=== PATIENT | female | born 1950 | race Caucasian/White ===

== ENCOUNTER → 2016-12-27 | Outpatient (REF) | payer MEDICARE | LOC: M LAB REF 16:52 | PROVIDERS: ATTEND Family Medicine | DX: Z01.89 Encounter for other specified special examinations (principal) ==

== ENCOUNTER → 2017-04-25 | Outpatient (CLI) | payer MEDICARE ==
--- NOTE | 2017-04-25 10:05 | REPMRS ---
Patient History The patient states she had a clinical breast exam in December 2016. Patient is postmenopausal, has history of cancer in the right breast at age 52, and had previous chemotherapy at age 52. Family history of breast cancer in mother at age 50 or over and breast cancer in paternal cousin at age 50 or over. Benign radio exam breast specimen of the left breast, June 30, 2012. Benign localization of breast nodule of the left breast, June 30, 2012. Benign stereotatic breast biopsy of the left breast, May 15, 2012. Malignant lumpectomy of the right breast, 2002. Chemotherapy, 2002. Radiation therapy of the right breast, 2002. Took hormonal contraceptives for 2 years. Took tamoxifen for 5 years. Took unspecified hormones for 2 years. Digital Mammo Screening Bilat: April 25, 2017 - Exam #: [id number] Bilateral CC and MLO view(s) were taken. Technologist: Terra Segura, Technologist Prior study comparison: April 23, 2016, bilateral digital mammo screening bilat performed at [facility]. April 22, 2015, bilateral digital mammo screening bilat performed at [facility]. FINDINGS: The breast tissue is extremely dense which could obscure a lesion on mammography. There is no evidence of cancer on this mammogram. No significant changes when compared with prior studies. ASSESSMENT: BI-RADS/ACR category 2 mammogram. Benign finding(s). Recommendation Routine screening mammogram of both breasts in 1 year (for women over age 40). This mammogram was interpreted with the aid of an FDA-approved computer-aided dectection system. Electronically Signed By: Naeem Alarcon MD 04/25/17 [id number]
== END ==
LOC: M RAD 08:40
PROVIDERS: ATTEND Internal Medicine Medical Oncology
DX: Z12.31 Encounter for screening mammogram for malignant neoplasm of breast (principal); R92.8 Other abnormal and inconclusive findings on diagnostic imaging of breast; Z85.3 Personal history of malignant neoplasm of breast; Z78.0 Asymptomatic menopausal state; Z92.0 Personal history of contraception

== ENCOUNTER 2017-07-25 08:42 | Day surgery (SDC) | payer MEDICARE ==
[2017-07-25] MEDS: NS 1,000 ML IV (10:04)
[2017-07-25] MEDS ORDERED: PROPOFOL 200 MG/20 ML VIAL As Ordered ×2 (10:32→10:40)
[2017-07-25] MEDS ORDERED: LIDOCAINE 2% INJ 100 MG/5 ML SDV (FOR ANES.) As Ordered (10:32)
== END 2017-07-25 11:25 | disposition home or self-care (01) ==
LOC: M OPP 08:42
DX: Z12.11 Encounter for screening for malignant neoplasm of colon (principal); Z86.010 Personal history of colon polyps; D12.5 Benign neoplasm of sigmoid colon; D12.4 Benign neoplasm of descending colon; D12.3 Benign neoplasm of transverse colon; D12.2 Benign neoplasm of ascending colon; R01.1 Cardiac murmur, unspecified; I10 Essential (primary) hypertension; Z85.3 Personal history of malignant neoplasm of breast; F41.9 Anxiety disorder, unspecified; M19.90 Unspecified osteoarthritis, unspecified site; Z78.0 Asymptomatic menopausal state; Z92.21 Personal history of antineoplastic chemotherapy; Z92.3 Personal history of irradiation; Z79.899 Other long term (current) drug therapy; Z80.3 Family history of malignant neoplasm of breast
CPT/HCPCS: 45385

== ENCOUNTER → 2018-04-29 | Outpatient (CLI) | payer MEDICARE | LOC: M RAD 07:11 | DX: Z12.31 Encounter for screening mammogram for malignant neoplasm of breast (principal); R92.1 Mammographic calcification found on diagnostic imaging of breast; Z85.3 Personal history of malignant neoplasm of breast; Z92.89 Personal history of other medical treatment; Z92.21 Personal history of antineoplastic chemotherapy; Z92.3 Personal history of irradiation; Z92.29 Personal history of other drug therapy; Z92.22 Personal history of monoclonal drug therapy; Z92.0 Personal history of contraception; Z80.3 Family history of malignant neoplasm of breast | CPT/HCPCS: 77067 ==

== ENCOUNTER → 2019-04-30 | Outpatient (CLI) | payer MEDICARE ==
[~2019-04-30] MED LIST: CHOL100029 PO; HYDR25TAB; SERT-138; VITA100067 PO
--- NOTE | 2019-04-30 09:32 | REPMRS ---
Patient History The patient states she has not had a clinical breast exam in over a year. Patient is postmenopausal, has history of cancer in the right breast at age 52, and had previous chemotherapy at age 52. Family history of breast cancer at age 50 or over in mother, breast cancer at age 50 or over in paternal cousin. Benign radio exam breast specimen of the left breast, June 30, 2012. Benign localization of breast nodule of the left breast, June 30, 2012. Benign stereotatic breast biopsy of the left breast, May 15, 2012. Malignant lumpectomy of the right breast, 2002. Chemotherapy, 2002. Radiation therapy of the right breast, 2002. Took hormonal contraceptives for 2 years. Took tamoxifen for 5 years. Took unspecified hormones for 2 years. 3D TOMOSYNTHESIS WAS PERFORMED. Digital Mammo Screening Bilat: April 30, 2019 - Exam #: [id number] Bilateral CC and MLO view(s) were taken. Technologist: Angeline Connor, Technologist Prior study comparison: April 29, 2018, bilateral digital mammo screening bilat performed at [facility]. April 25, 2017, bilateral digital mammo screening bilat performed at [facility]. FINDINGS: The breast tissue is heterogeneously dense. This may lower the sensitivity of mammography. There has been no change in the appearance of the mammogram from the prior studies. There is a moderate amount of residual fibroglandular tissue which is fairly symmetric. There is no interval development of dominant mass, areas of architectural distortion, or clustered microcalcification typical of malignancy. Large coarse benign appearing calcifications are present. No significant changes when compared with prior studies. Assessment: BI-RADS/ACR category 1 mammogram. Negative Mammogram. Recommendation Routine screening mammogram in 1 year (for women over age 40). This mammogram was interpreted with the aid of an FDA-approved computer-aided dectection system. Electronically Signed By: Naeem Alarcon MD 04/30/19 [id number]
== END ==
LOC: M RAD 08:05
PROVIDERS: ATTEND Family Medicine
DX: Z12.31 Encounter for screening mammogram for malignant neoplasm of breast (principal); Z78.0 Asymptomatic menopausal state; Z92.0 Personal history of contraception

== ENCOUNTER → 2019-10-06 | Outpatient (CLI) | payer MEDICARE ==
--- NOTE | 2019-10-06 16:04 | REP ---
REASON: Pain and swelling. DEEP VENOUS ULTRASONOGRAPHY RIGHT THIGH, RULE OUT DVT: TECHNIQUE: Multiple ultrasonographic images of the deep venous structures of the thigh were obtained from the common femoral vein to the popliteal vein along with Doppler interrogation and color flow Doppler images. FINDINGS: There is no abnormal echogenic material seen within any of the visualized deep venous structures that would suggest acute thrombosis. Coaptation is unremarkable throughout. Doppler interrogation shows an expected response to respiratory variability and augmentation. The color flow images show what appears to be a normal vascular pattern throughout. IMPRESSION: There is no ultrasonographic evidence of deep venous thrombosis involving any of the visualized deep venous structures of the right thigh, as described above. Electronically Signed by Srikanth Galan DO 10/06/2019 04:20 P
== END ==
LOC: M RAD 14:18
PROVIDERS: ATTEND Family Medicine
DX: R60.9 Edema, unspecified (principal)

== ENCOUNTER → 2019-12-01 | Outpatient (REF) | payer MEDICARE ==
[2019-12-02 08:51] LABS: FOLATE 12.5 NG/ML
[2019-12-06 15:08] LABS: VITAMIN B1 LEVEL WHOLE BLOOD 112.7 nmol/L (66.5-200.0); VITAMIN B6,PYRIDOXAL PHOSPHATE 10.3 ug/L (2.0-32.8); VITAMIN E(ALPHA TOCOPHEROL) 10.4 mg/L (9.0-29.0); VITAMIN E(GAMMA TOCOPHEROL) 1.2 mg/L (0.5-4.9)
== END ==
LOC: M LAB REF 16:08
PROVIDERS: ATTEND Family Medicine
DX: R41.3 Other amnesia (principal); E51.9 Thiamine deficiency, unspecified; E53.1 Pyridoxine deficiency

== ENCOUNTER → 2020-05-02 | Outpatient (CLI) | payer MEDICARE ==
[~2020-05-02] MED LIST changes: +DONE10TA90 PO
--- NOTE | 2020-05-02 09:09 | REPMRS ---
Patient History The patient states she had a clinical breast exam in 11/2019. Family history of breast cancer at age 50 or over in mother, breast cancer at age 50 or over in paternal cousin. Benign radio exam breast specimen of the left breast, June 30, 2012. Benign localization of breast nodule of the left breast, June 30, 2012. Benign stereotatic breast biopsy of the left breast, May 15, 2012. Malignant lumpectomy of the right breast, 2002. Chemotherapy, 2002. Radiation therapy of the right breast, 2002. Took hormonal contraceptives for 2 years. Took tamoxifen for 5 years. Took unspecified hormones for 2 years. 3D TOMOSYNTHESIS WAS PERFORMED. Volpara breast density c. Digital Woman Screen Mammo: May 02, 2020 - Exam #: [id number] Bilateral CC and MLO view(s) were taken. Technologist: Melisa Ledesma, Technologist Prior study comparison: April 30, 2019, bilateral digital mammo screening bilat, performed at [facility]. April 29, 2018, bilateral digital mammo screening bilat, performed at [facility]. FINDINGS: The breast tissue is heterogeneously dense. This may lower the sensitivity of mammography. There has been no change in the appearance of the mammogram from the prior studies. There is a moderate amount of residual fibroglandular tissue which is fairly symmetric. There is no interval development of dominant mass, areas of architectural distortion, or clustered microcalcification typical of malignancy. Assessment: BI-RADS/ACR category 1 mammogram. Negative Mammogram. Recommendation Routine screening mammogram in 1 year (for women over age 40). This mammogram was interpreted with the aid of an FDA-approved computer-aided dectection system. Electronically Signed By: Naeem Alarcon MD 05/02/20 0909
== END ==
LOC: M WHC 08:11
PROVIDERS: ATTEND Family Medicine
DX: Z12.31 Encounter for screening mammogram for malignant neoplasm of breast (principal); Z80.3 Family history of malignant neoplasm of breast; Z85.3 Personal history of malignant neoplasm of breast; Z92.21 Personal history of antineoplastic chemotherapy; Z92.3 Personal history of irradiation

== ENCOUNTER → 2021-06-07 | Outpatient (CLI) | payer MEDICARE ==
[~2021-06-07] MED LIST changes: +HYDR-3490; -HYDR25TAB
--- NOTE | 2021-06-07 16:25 | REP ---
INDICATION: SCREEN MAMMO. COMPARISON: 05/02/2020 as well as multiple other prior exams. TECHNIQUE: Bilateral MLO and CC views with tomosynthesis. FINDINGS: There is moderate heterogeneous fibroglandular density. There is no change on the right. On the left there is an area of possible developing architectural distortion anteriorly in the retroareolar region, slightly inferiorly. Otherwise no new mass or clustered microcalcifications are seen. The Volpara volumetric breast density pattern is C. IMPRESSION: BIRADS/ACR category 0, incomplete. There is possible developing focal architectural distortion in the left inferior retroareolar region. Recommend spot compression views and ultrasound to further evaluate. This mammogram was interpreted with the aid of an FDA-approved computer-aided detection system. The patient states she had a clinical breast exam in over 1 year ago. The patient letter being requested is M0. RECOMMENDATION: Recommend spot compression views and ultrasound left breast as discussed above. <Electronically signed by Naeem Alarcon > 06/07/21 [id number]
== END ==
LOC: M WHC 14:24
PROVIDERS: ATTEND Family Medicine
DX: Z12.31 Encounter for screening mammogram for malignant neoplasm of breast (principal); R92.8 Other abnormal and inconclusive findings on diagnostic imaging of breast

== ENCOUNTER → 2021-06-16 | Outpatient (REF) | payer MEDICARE ==
[2021-06-16 17:56] LABS: FOLATE > 24.0 NG/ML; VITAMIN B12 LEVEL 432 PG/ML
== END ==
LOC: M LAB REF 16:16
PROVIDERS: ATTEND Family Medicine
DX: R41.3 Other amnesia (principal)